=== PATIENT | male | born 2005 | race Caucasian/White ===

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

== ENCOUNTER 2024-05-11 17:48 | Emergency (ER) | payer SELFPAY ==
[~2024-05-11] VITALS: Ht 182.9 cm; Wt 72.7 kg
[~2024-05-11 17:48] MED LIST: CEFTIN500 MG PO
[2024-05-11 17:50] VITALS: TEMP 99.2
[2024-05-11 18:09] LABS: HEMATOCRIT 45.2 % (36.0-47.0); HEMOGLOBIN 14.7 g/dl (12.5-16.1); MEAN CELL VOLUME 94 fl (80.0-95.0); MEAN CORPUSCULAR HEMOGLOBIN 30 pg (26-32); MEAN CORPUSCULAR HGB CONC 33 g/dl (33.0-37.0); MEAN PLATELET VOLUME 11.7 fl (7.4-10.4); PLATELET COUNT 326 K/mm3 (130-400); RED BLOOD COUNT 4.83 M/mm3 (4.20-5.60); REDCELL DISTRIBUTION WIDTH-CV 12.7 % (11.5-14.5)
[2024-05-11 18:14] LABS: INR 1.3 (0.8-3.0); PROTHROMBIN TIME 14.4 SECONDS (9.7-12.8)
[2024-05-11] MEDS ORDERED: Rocuronium 50 MG/5 ML Multi-Dose VIAL IV ONE (18:15)
[2024-05-11] MEDS ORDERED: Etomidate 20 MG/10 ML VIAL IV ONE (18:15)
[2024-05-11] MEDS ORDERED: Sodium Chloride 3% 500 ML IV SCH (18:15)
[2024-05-11 18:24] LABS: COLLECTION METHOD CATHETER
[2024-05-11 18:24] LABS: ALBUMIN 4.4 g/dL (3.5-5.0); BILIRUBIN,TOTAL 0.7 mg/dL (0.2-1.2); CALCIUM 9.2 mg/dL (8.4-10.2); CREATININE, serum 2.79 mg/dL (0.72-1.25); POTASSIUM 4.5 mEq/L (3.5-4.5); TOTAL PROTEIN 7.7 g/dl (6.2-8.1)
[2024-05-11] MEDS ORDERED: fentaNYL 100 ML IV ONE (18:30)
[2024-05-11] MEDS ORDERED: Succinylcholine PF 200 MG/10 ML SYRINGE IV ONE (18:30)
[2024-05-11 18:33] LABS: ALCOHOL(ethanol),MEDICAL 35 mg/dL (0-10)
[2024-05-11 18:35] LABS: PH 5.5 (5.0-8.5); URINE APPEARANCE CLEAR (CLEAR/HAZY); URINE BLOOD 1+ (NEGATIVE); URINE COLOR YELLOW (YELLOW); URINE GLUCOSE NEGATIVE (NEGATIVE); URINE KETONE NEGATIVE (NEGATIVE); URINE NITRATE NEGATIVE (NEGATIVE); URINE PROTEIN(semi-quant) NEGATIVE (NEGATIVE); URINE UROBILINOGEN 0.2 E.U/dL (0.2-1.0)
[2024-05-11 18:37] LABS: TRICYCLIC ANTIDEPRESS URINE NEGATIVE (NEGATIVE)
[2024-05-11 18:40] LABS: SALICYLATE < 5.0 mg/dL (15.0-30.0)
[2024-05-11] MEDS ORDERED: NS 500 ML IV ONE (18:45)
[2024-05-11 18:47] LABS: ANISOCYTOSIS 1+; BAND 10 % (0-10); LYMPHOCYTE 6 % (20.0-51.0); NEUTROPHILS 83 % (42.0-75.2); PLATELET ESTIMATE NORMAL (NORMAL)
[2024-05-11 19:05] VITALS: BP 98/49; PULSE 120
== END 2024-05-11 19:50 | disposition short-term general hospital (02) ==
LOC: COL.ER → EDBD 17:49 → COL.ER 17:49
PROVIDERS: Nurse Practitioner
DX: S01.03XA Puncture wound without foreign body of scalp, initial encounter (principal); W34.00XA Accidental discharge from unspecified firearms or gun, initial encounter
CPT/HCPCS: J2704; J3010; J7040; J7131; P9016